=== PATIENT | male | born 1985 | race African-American/Black ===

== ENCOUNTER 2022-10-30 12:11 | Emergency (ER) | payer OTHER ==
[~2022-10-30] VITALS: Ht 180.3 cm; Wt 190.0 kg
[~2022-10-30 12:11] MED LIST: HYDR-4902 PO; NIFE1TAB36 PO
[2022-10-30 12:52] VITALS: RESP 18; TEMP 98.1; O2SAT 97
[2022-10-30 13:26] VITALS: BP 149/101; PULSE 100
[2022-10-30] MEDS ORDERED: IBUPROFEN 600 MG TAB PO ONE (13:30)
[2022-10-30] MEDS ORDERED: cefTRIAXone SOD 1,000 MG VL IM ONE (13:30)
[2022-10-30] MEDS ORDERED: KETOROLAC TROMETH 30 MG/ML 1ML VIAL IM ONE (13:30)
[2022-10-30] MEDS ORDERED: BACDST PO (13:51)
[2022-10-30] MEDS ORDERED: NIFE1TAB30 PO (14:02)
[2022-10-30] MEDS ORDERED: HYDR-4902 PO (14:03)
== END 2022-10-30 14:22 | disposition home or self-care (01) ==
LOC: ER 12:11
DX: L03.114 Cellulitis of left upper limb (principal); F17.210 Nicotine dependence, cigarettes, uncomplicated; F10.90 Alcohol use, unspecified, uncomplicated; F12.90 Cannabis use, unspecified, uncomplicated; Z79.899 Other long term (current) drug therapy
CPT/HCPCS: 96372; 99284; J0696; J1885

== ENCOUNTER 2024-02-21 01:17 | Emergency (ER) | payer MEDICAID, OTHER ==
[~2024-02-21] VITALS: Ht 177.8 cm; Wt 88.2 kg
[~2024-02-21 01:17] MED LIST changes: +BACDST PO; +NIFE1TAB30 PO
[2024-02-21 01:21] VITALS: BP 150/111; PULSE 119; RESP 14; O2SAT 98
[2024-02-21] MEDS ORDERED: KETOROLAC TROMETH 60MG/2ML VIAL IM ONE (01:30)
[2024-02-21] MEDS ORDERED: LORazepam 0.5 MG TAB PO ONE (01:30)
[2024-02-21] MEDS ORDERED: ACETAMINOPHEN 500 MG TAB PO ONE (01:30)
--- NOTE | 2024-02-21 01:50 | ED.PDOC ---
History of Present Illness HPI Comments This patient is a 38-year-old male who arrives the ED today for evaluation of a headache status post smoking crack cocaine approximately 2 hours prior to arrival. Patient states to use subsequently smoking be cocaine, he developed a headache. Patient arrives mildly hypertensive and mildly tachycardic. Patient denies any fever nausea or vomiting. Patient appears to be under the influence of cocaine. Chief Complaint: Headache Time Seen by MD: 01:21 Primary Care Provider: NONE Reviewed Notes: Nurses Notes Allergies: Coded Allergies: NO KNOWN ALLERGIES (Unverified , 08/10/22) Home Meds Active Scripts Hydrocodone-Acetaminophen (Hydrocodone Bitartrate/AC 5-325 mg) 1 Tab Tab, 1 TAB PO BID PRN, #6 TAB 0 Refills Prov:[facility] 10/30/22 Nifedipine (Nifedipine Er) 60 Mg Tab, 1 TAB PO DAILY, #30 TAB 2 Refills Prov:[facility] 10/30/22 Sulfamethoxazole W/Trimethopri (Bactrim Ds Tablet) 1 Tab Tb, 1 TAB PO BID for 10 Days, #20 TAB 0 Refills Prov:[facility] 10/30/22 Hydrocodone-Acetaminophen (Hydrocodone Bitartrate/AC 5-325 mg) 1 Tab Tab, 1 TAB PO Q6HP PRN for 3 Days, #12 TAB Prov:LEILANI [facility] [employer] 08/16/22 Nifedipine (Nifedipine ER) 30 Mg Tab, 60 MG PO DAILY for 60 Days, #120 TAB Prov:LEILANI [facility] [employer] 08/16/22 Information Source: Patient Mode of Arrival: Ambulatory Severity: Moderate Timing: Hours Duration: Since onset Prehospital treatment: None Past Medical History PAST MEDICAL HISTORY: Denies Surgical History: Denies all surgeries Family History Family History: No family hx of Cancer, No family hx of DM, No family hx of Heart dawn Social History Smoker: Cigarettes Alcohol: Heavy Drugs: Cocaine, Marijuana Lives In: Home Constitutional: denies: chills, diaphoresis, fatigue, fever, malaise, sweats, weakness, others EENTM: denies: blurred vision, double vision, ear bleeding, ear discharge, ear drainage, ear pain, ear ringing, eye pain, eye redness, hearing loss, mouth pain, mouth swelling, nasal discharge, nose bleeding, nose congestion, nose pain, photophobia, tearing, throat pain, throat swelling, voice changes, others Respiratory: denies: cough, hemoptysis, orthopnea, SOB at rest, shortness of breath, SOB with excertion, stridor, wheezing, others Cardiovascular: denies: chest pain, dizzy spells, diaphoresis, Dyspnea on exertion, edema, irregular heart beat, left arm pain, lightheadedness, palpitations, PND, syncope, others Gastrointestinal: denies: abdomen distended, abdominal pain, blood streaked bowels, constipated, diarrhea, dysphagia, difficulty swallowing, hematemesis, melena, nausea, poor appetite, poor fluid intake, rectal bleeding, rectal pain, vomiting, others Genitourinary: denies: burning, dysuria, flank pain, frequency, hematuria, incontinence, penile discharge, penile sore, pain, testicle pain, testicle swelling, urgency, others Neurological: reports: headache; denies: dizziness, fainting, left sided numbness, left sided weakness, numbness, paresthesia, pre-existing deficit, right sided numbness, right sided weakness, seizure, speech problems, tingling, tremors, weakness, others Musculoskeletal: denies: back pain, gout, joint pain, joint swelling, muscle pain, muscle stiffness, neck pain, others Integumetry: denies: bruises, change in color, change in hair/nails, dryness, laceration, lesions, lumps, rash, wounds, others Allergic/Immunocompromised: denies: Difficulty Healing, Frequent Infections, Hives, Itching, others Hematologic/Lymphatic: denies: anemia, blood clots, easy bleeding, easy bruising, swollen glands, others Endocrine: denies: excessive hunger, excessive sweating, excessive thirst, excessive urination, flushing, intolerance to cold, intolerance to heat, unexplained weight gain, unexplained weight loss, others Psychiatric: denies: anxiety, bipolar disorder, depression, hopeless, panic disorder, schizophrenia, sleepless, suicidal, others Physical Exam General Appearance: Moderate Distress ([id number] distress due to headache concerns. Patient appears to be under the influence of cocaine.), Normal HEENT: Pharynx Normal, TMs Normal, Other (Dilated bilateral pupils) Neck: Full Range of Motion, Non-Tender, Normal, Normal Inspection Respiratory: Chest Non-Tender, Lungs Clear, No Accessory Muscle Use, No Respiratory Distress, Normal Breath Sounds Cardiovascular: No Edema, No JVD, No Murmur, No Gallop, Normal Peripheral Pulses, Regular Rate/Rhythm Breast Exam: Deferred Gastrointestinal: No Organomegaly, Non Tender, No Pulsatile Mass, Normal Bowel Sounds, Soft Genitalia: Deferred Pelvic: Deferred Rectal: Deferred Extremities: No calf tenderness, Normal capillary refill, Normal inspection, Normal range of motion, Non-tender, No pedal edema Neurologic: Alert, lead printer II-XII nml as Tested, No Motor Deficits, Normal Affect, Normal Mood, No Sensory Deficits Cerebellar Function: Normal Reflexes: Normal Skin: Dry, Normal Color, Warm Lymphatic: No Adenopathy Was a procedure done? Was a procedure done?: No Differential Dx Considerations may include: Headache X-Ray, Labs, Meds, VS Vital Signs Date Time Temp Pulse Resp B/P (MAP) Pulse Ox O2 Delivery O2 Flow Rate FiO2 02/21/24 01:21 97.5 119 14 150/111 (124) 98 X-Ray, Labs, Meds, VS Comment Patient was provided with the medication to address his headache concerns. Spent 10 minutes advised with the patient of the need to cease any additional cocaine use. Advised patient to follow up with a assistance programs such as narcotics anonymous. Time of 1ST Reevaluation: 01:55 Reevaluation 1ST: Improved Consultation: PCP, Other (Narcotics anonymous) Patient Education/Counseling: Diagnosis, Treatment Family Education/Counseling: Diagnosis, Treatment Departure 1 Departure Time of Disposition: 01:56 Impression: Primary Impression: Cocaine abuse Additional Impression: Headache Disposition: 01 HOME / SELF CARE / HOMELESS Condition: Stable Additional Instructions: Advised patient utilize Tylenol and or Motrin as needed for pain relief. Adv ised patient to cease cocaine use immediately and follow up with a assistance programs such as narcotics anonymous. Discharged With: Self, Friend Critical Care Note Critical Care Time?: No Stability Stability form required: No Heart Score Heart Score: Heart Score Response (Comments) Value History N/A 0 EKG N/A 0 Age N/A 0 Risk Factors N/A 0 Troponin N/A 0 Total 0 JHONATHAN MARIA PAC Feb 21, 2024 01:50
== END 2024-02-21 03:27 | disposition home or self-care (01) ==
LOC: ER 01:17
DX: F14.10 Cocaine abuse, uncomplicated (principal); R51.9 Headache, unspecified; F12.10 Cannabis abuse, uncomplicated; R00.0 Tachycardia, unspecified; I10 Essential (primary) hypertension; F17.210 Nicotine dependence, cigarettes, uncomplicated; Z79.899 Other long term (current) drug therapy